=== PATIENT | male | born 1990 | race American Indian/Alaskan Native ===

== ENCOUNTER 2018-01-09 10:48 | Inpatient (IN) | payer OTHER ==
[2018-01-09 13:56] VITALS: BMI 24.3
--- NOTE | 2018-01-09 20:21 | HP ---
COWS - Scale Resting Pulse: 0= NH 80 or Below Sweatin= Chills/Flushing Restless Observation: 1= Difficult to Sit Still Pupil Size: 1= Pupils >than Normal Bone or Joint Aches: 1= Mild Discomfort Runny Nose/ Eye Tearin= Runny Nose/Eyes GI Upset > 30mins: 2= Nausea/Diarrhea Tremor Observation: 2= Slight Tremor Visible Yawning Observation: 1= 1-2x During Session Anxiety or Irritability: 1=Feels Anxious/Irritable Goose Flesh Skin: 0=Smooth Skin COWS Score: 12 Admission [facility] Chief Complaint: heroin and xanax withdrawal symptoms Allergies/Adverse Reactions: Allergies Allergy/AdvReac Type Severity Reaction Status Date / Time No Known Allergies Allergy Verified 01/09/18 17:20 History of Present Illness: 27 yo male with hx of nicotine, xanax and heroin (paransal) dependence is here seeking detox. PMHX: insomnia, anxiety. Denies suicidal / homicidal ideation or suicide attempts. Last detox a month ago at [facility]. Longest period of sobriety 6.5 months while on Suboxone. Denies hx of seizures, reports blackouts related to benzo withdrawal. Reference #: [id number] Others' Prescriptions Patient Name: Ji Vega Date: 1990 Address: [address] [place] [address] Sex: Male Rx Written Rx Dispensed Drug Quantity Days Supply Prescriber Name 12/22/2017 12/22/2017 methadone hcl 10 mg tablet 12 12 Pean, Khurram Kunz Patient Name: Ji Vega Date: 1990 Address: [address] [place] [address] Sex: Male Rx Written Rx Dispensed Drug Quantity Days Supply Prescriber Name 03/10/2017 03/10/2017 suboxone 8 mg-2 mg sl film 20 20 Marcial Vasquez MD Exam Limitations: No Limitations - Ebola screening Have you traveled outside of the country in the last 21 days: No (N) Have you had contact with anyone from an Ebola affected area: No Have you been sick,other than usual withdrawal symptoms: No Do you have a fever: No - Review of Systems Constitutional: Chills, Diaphoresis, Changes in sleep EENT: reports: No Symptoms Reported Respiratory: reports: No Symptoms reported Cardiac: reports: No Symptoms Reported GI: reports: Diarrhea, Nausea, Poor Fluid Intake : reports: No Symptoms Reported Musculoskeletal: reports: Back Pain, Joint Pain Integumentary: reports: No Symptoms Reported Neuro: reports: See HPI, Headache Endocrine: reports: No Symptoms Reported, Increased Thirst Hematology: reports: No Symptoms Reported Psychiatric: reports: Orientated x3, Anxious Other Systems: Reviewed and Negative Patient History - Patient Medical History Hx Anemia: No Hx Asthma: No Hx Chronic Obstructive Pulmonary Disease (COPD): No Hx Cancer: No Hx Cardiac Disorders: No Hx Congestive Heart Failure: No Hx Hypertension: No Hx Hypercholesterolemia: No Hx Pacemaker: No HX Cerebrovascular Accident: No Hx Seizures: No Hx Dementia: No Hx Diabetes: No Hx Gastrointestinal Disorders: No Hx Liver Disease: No Hx Genitourinary Disorders: No Hx Sexually Transmitted Disorders: No Hx Renal Disease (ESRD): No Hx Thyroid Disease: No Hx Human Immunodeficiency Virus (HIV): No (last tested 12/23/17 negative) Hx Hepatitis C: No Hx Depression: Yes Hx Suicide Attempt: No Hx Bipolar Disorder: No Hx Schizophrenia: No - Patient Surgical History Past Surgical History: No - PPD History Previous Implant?: Yes Documented Results: Negative w/o proof Implanted On Prior [facility] Admission?: No PPD to be Administered?: Yes - Smoking Cessation Smoking history: Current every day smoker Have you smoked in the past 12 months: Yes Aproximately how many cigarettes per day: 8 Hx Chewing Tobacco Use: No Initiated information on smoking cessation: Yes 'Breaking Loose' booklet given: 01/09/18 - Substance & Tx. History Hx Alcohol Use: Yes Hx Substance Use: Yes Substance Use Type: Cocaine, Tranquilizers Hx Substance Use Treatment: Yes (ast detox a month ago at [facility]) - Substances Abused Heroin Route: Inhalation Frequency: Daily Amount used: 15 bags Age of first use: 24 Date of Last Use: 01/08/18 Alprazolam (Xanax) Route: Oral Frequency: Daily Amount used: 8-10 mg Age of first use: 23 Date of Last Use: 01/06/18 Family Disease History - Family Disease History Family History: Unable to Obtain Admission Physical Exam BHS - Vital Signs Vital Signs: Vital Signs - 24 hr 01/09/18 13:54 Temperature 98.5 F Pulse Rate 64 Respiratory 18 Rate Blood Pressure 137/73 - Physical General Appearance: Yes: Appropriately Dressed, Thin, Tremorous, Anxious HEENTM: Yes: EOMI, Hearing grossly Normal, Normal ENT Inspection, Normocephalic , Normal Voice, YASMIN, Pharynx Normal, Tm's normal Respiratory: Yes: Chest Non-Tender, Lungs Clear, Normal Breath Sounds, No Respiratory Distress, No Accessory Muscle Use Neck: Yes: No masses,lesions,Nodules, Trachea in good position Breast: Yes: Breast Exam Deferred Cardiology: Yes: Regular Rhythm, Regular Rate, Murmur Abdominal: Yes: Normal Bowel Sounds, Non Tender, Flat, Soft Genitourinary: Yes: Within Normal Limits Back: Yes: Normal Inspection Musculoskeletal: Yes: full range of Motion, Gait Steady, Pelvis Stable Extremities: Yes: Normal Capillary Refill, Normal Inspection, Normal Range of Motion 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, Fully Oriented, Alert, Motor Strength 5/5, Depressed Affect Integumentary: Yes: Normal Color, Warm, Moist Lymphatic: Yes: Within Normal Limits - Diagnostic (1) Opioid dependence with withdrawal Current Visit: Yes Status: Acute (2) Sedative, hypnotic or anxiolytic dependence with withdrawal, unspecified Current Visit: Yes Status: Acute (3) Nicotine dependence Current Visit: Yes Status: Acute Qualifiers: Nicotine product type: cigarettes (4) Anxiety Current Visit: Yes Status: Chronic Cleared for Admission [facility] - Detox or Rehab [facility] Level of Care: Medically Managed Detox Regimen/Protocol: Methadone [facility] Breath Alcohol Content Breath Alcohol Content: 0 Urine Drug Screen - Results Drug Screen Negative: No Urine Drug Screen Results: OPI-Opiates
[2018-01-09] MEDS ORDERED: MENTHOL/PHENOL 1 EACH UD MM PRN (20:26)
[2018-01-09] MEDS ORDERED: METHADONE HCL 10 MG TABLET (FOR DETOX USE ONLY) PO ONE ×2 (20:26→23:00)
[2018-01-09] MEDS ORDERED: LOPERAMIDE HCL 2 MG CAPSULE PO PRN (20:26)
[2018-01-09] MEDS ORDERED: P-EPHED 60MG/TRIPROLIDI 2.5MG TABLET PO PRN (20:26)
[2018-01-09] MEDS ORDERED: MAG HYDROX/AL HYDROX/SIMETH 30 ML UNIT-DOSE CUP PO PRN (20:26)
[2018-01-09] MEDS ORDERED: ACETAMINOPHEN 325 MG TABLET (FP) PO PRN (20:26)
[2018-01-09] MEDS ORDERED: MAGNESIUM HYDROX 2400MG/30ML ORAL SUSPENSION 30 ML CUP PO PRN (20:26)
[2018-01-09] MEDS ORDERED: MAGNESIUM CITRATE 300 ML BOTTLE PO PRN (20:26)
[2018-01-09] MEDS ORDERED: IBUPROFEN 400 MG TABLET (FP) PO PRN (20:26)
[2018-01-09] MEDS ORDERED: MELATONIN 5 MG TABLETS PO PRN (22:00)
[2018-01-09] MEDS: THIAMINE HCL 100 MG TABLET (FP) PO SCH (22:27)
[2018-01-09] MEDS: diazePAM 5 MG TABLET PO PRN (22:27)
[2018-01-09] MEDS: hydrOXYzine PAMOATE 50 MG CAPSULE (FP) PO PRN (22:29)
[2018-01-10 06:35] LABS: URINE APPEARANCE CLEAR; URINE BILIRUBIN NEGATIVE (<2.0 mg/dL); URINE BLOOD NEGATIVE (NEGATIVE); URINE COLOR YELLOW; URINE GLUCOSE (UA) NEGATIVE (NEGATIVE); URINE KETONE NEGATIVE (NEGATIVE); URINE LEUK ESTERASE NEGATIVE (NEGATIVE); URINE NITRITE NEGATIVE (NEGATIVE); URINE PROTEIN NEGATIVE (NEGATIVE)
[2018-01-10] MEDS: diazePAM 5 MG TABLET PO PRN ×4 (08:24→22:22)
[2018-01-10] MEDS: guaiFENesin/D-METHORPHAN HB 10 ML UNIT-DOSE CUPS PO PRN ×2 (08:25→20:23)
[2018-01-10] MEDS ORDERED: METHADONE HCL 10 MG TABLET (FOR DETOX USE ONLY) PO ONE (10:00)
[2018-01-10 10:23] LABS: HEMATOCRIT 37.9 % (35.4-49); HEMOGLOBIN 13.1 GM/dL (11.7-16.9); MCH 28.3 pg (25.7-33.7); MCHC 34.7 g/dl (32.0-35.9); MEAN CELL VOLUME 81.6 fl (80-96); MEAN PLT VOLUME 10.1 fl (7.5-11.1); PLATELET COUNT 199 K/MM3 (134-434); RBC 4.64 M/mm3 (4.00-5.60); WHITE BLOOD COUNT 6.6 K/mm3 (4.0-10.0)
[2018-01-10 10:32] LABS: CHLORIDE 107 mmol/L (98-107); POTASSIUM 4.9 mmol/L (3.5-5.1); SODIUM 141 mmol/L (136-145)
[2018-01-10] MEDS: PRENATAL VITAMINS W/ FOLIC ACID TABLET (FP) PO SCH (10:39)
[2018-01-10] MEDS: hydrOXYzine PAMOATE 50 MG CAPSULE (FP) PO PRN ×3 (10:40→22:22)
[2018-01-10] MEDS: NICOTINE POLACRILEX 2 MG GUM BC PRN ×2 (10:41→12:53)
[2018-01-10 10:54] LABS: ALBUMIN 3.6 g/dl (3.4-5.0); ALK PHOS 40 U/L (45-117); ANION GAP 7 (8-16); BILIRUBIN,TOTAL 0.5 mg/dL (0.2-1.0); BLOOD UREA NITROGEN 19 mg/dL (7-18); CALCIUM 9.1 mg/dL (8.5-10.1); CO2 27 mmol/L (21-32); CREATININE 0.8 mg/dL (0.7-1.3); GLUCOSE,RANDOM 88 mg/dL (74-106); SGOT/AST 14 U/L (15-37); SGPT/ALT 31 U/L (12-78); TOT PROT 6.6 g/dl (6.4-8.2)
--- NOTE | 2018-01-10 11:09 | CONSULT ---
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 This is patient's first admission to detox at [facility]. Patient admitted to for heroin and cocaine dependence. Substance Abuse History: Smoking Cessation. Smoking history: Current every day smoker. Have you smoked in the past 12 months: Yes. Aproximately how many cigarettes per day: 8. Hx Chewing Tobacco Use: No. Initiated information on smoking cessation: Yes. 'Breaking Loose' booklet given: 01/09/18. - Substance & Tx. History. Hx Alcohol Use: Yes. Hx Substance Use: Yes. Substance Use Type : Cocaine, Tranquilizers. Hx Substance Use Treatment: Yes (ast detox a month ago at [facility]). - Substances Abused. Heroin. Route: Inhalation. Frequency: Daily. Amount used: 15 bags. Age of first use: 24. Date of Last Use: 01/08/18. Alprazolam (Xanax). Route: Oral. Frequency: Daily. Amount used: 8-10 mg. Age of first use: 23. Date of Last Use: 01/06/18 Medical History: Denies. Psychiatric History: Patient denies h/o psychiatric hospitalization, outpatient care, and suicide attempt. Pt. reports poor sleep. Physical/Sexual Abuse/Trauma History: Denies. Mental Status Exam - Mental Status Exam Alert and Oriented to: Time, Place, Person Cognitive Function: Good Patient Appearance: Well Groomed Mood: Hopeful Affect: Mood Congruent Patient Behavior: Appropriate, Cooperative Speech Pattern: Clear, Appropriate Voice Loudness: Normal Thought Process: Intact, Goal Oriented Thought Disorder: Not Present Hallucinations: Denies Suicidal Ideation: Denies Homicidal Ideation: Denies Insight/Judgement: Poor Sleep: Fair Appetite: Good Muscle strength/Tone: Normal Gait/Station: Normal Psychiatric Findings - Problem List ([place] 1, 2,3) (1) Nicotine dependence Current Visit: Yes Status: Acute Qualifiers: Nicotine product type: cigarettes (2) Opioid dependence with withdrawal Current Visit: Yes Status: Acute (3) Sedative, hypnotic or anxiolytic dependence with withdrawal, unspecified Current Visit: Yes Status: Acute (4) Substance-induced sleep disorder Current Visit: Yes Status: Acute - Initial Treatment Plan Initial Treatment Plan: Psychoeduation provided. Detoxification in progress. Ambien 10mg qhs ordered. Benefits and side effects discussed. Patient made aware of the risk of parasomnia. Verbal consent given. Will continue to monitor.
--- NOTE | 2018-01-10 11:43 | EKG ---
Test Reason : Blood Pressure : / mmHG Vent. Rate : 073 BPM Atrial Rate : 073 BPM P-R Int : 192 ms QRS Dur : 084 ms QT Int : 382 ms P-R-T Axes : 051 047 047 degrees QTc Int : 420 ms NORMAL SINUS RHYTHM NORMAL ECG WHEN COMPARED WITH ECG OF 07-JAN-2017 15:22, VENT. RATE HAS DECREASED BY 41 BPM QRS DURATION HAS DECREASED T WAVE INVERSION NO LONGER EVIDENT IN INFERIOR LEADS NONSPECIFIC T WAVE ABNORMALITY NO LONGER EVIDENT IN LATERAL LEADS Confirmed by ZIYAD NORWOOD MD ([id number]) on 01/10/2018 11:42:47 AM Referred By: Confirmed By:ZIYAD NORWOOD MD
--- NOTE | 2018-01-10 15:10 | PN ---
S COWS - Scale Resting Pulse: 1= [place] 81-100 Sweatin= Chills/Flushing Restless Observation: 3= Extraneous Movement Pupil Size: 2= Moderately Dilated Bone or Joint Aches: 2= Severe Diffuse Aches Runny Nose/ Eye Tearin= Nasal Congestion GI Upset > 30mins: 0= None Tremor Observation of Outstretched Hands: 1= Tremor [place], Not Seen Yawning Observation: 1= 1-2x During Session Anxiety or Irritability: 1=Feels Anxious/Irritable Goose Flesh Skin: 3=Piloerection COWS Score: 16 BHS Progress Note (SOAP) Subjective: 'ANXIETY,TREMORS,HEADACHE,NASAL CONGESTION,GOOSE BUMPS". Objective: 01/10/18 15:09 Vital Signs Temperature 97.4 F L 01/10/18 14:46 Pulse Rate 81 01/10/18 14:46 Respiratory Rate 18 01/10/18 14:46 Blood Pressure 128/83 01/10/18 14:46 O2 Sat by Pulse Oximetry (%) Laboratory Tests 01/09/18 01/10/18 01/10/18 22:00 08:00 08:00 WBC 6.6 RBC 4.64 Hgb 13.1 Hct 37.9 MCV 81.6 MCH 28.3 MCHC 34.7 RDW 14.0 Plt Count 199 MPV 10.1 Sodium 141 Potassium 4.9 D Chloride 107 Carbon Dioxide 27 Anion Gap 7 L BUN 19 H Creatinine 0.8 Creat Clearance w eGFR > 60 Random Glucose 88 Calcium 9.1 Total Bilirubin 0.5 AST 14 L D ALT 31 D Alkaline Phosphatase 40 L D Total Protein 6.6 Albumin 3.6 D Urine Color Yellow Urine Appearance Clear Urine pH 7.0 D Ur Specific [place] 1.016 Urine Protein Negative Urine Glucose (UA) Negative Urine Ketones Negative Urine Blood Negative Urine Nitrite Negative Urine Bilirubin Negative Urine Urobilinogen 2.0 Ur Leukocyte Esterase Negative Assessment: 01/10/18 15:09 WITHDRAWAL SX Plan: CONTINUE DETOX
[2018-01-10] MEDS: ZOLPIDEM TARTRATE 10 MG TABLET (PARK CARE ONLY) PO PRN (22:23)
[2018-01-10] MEDS: THIAMINE HCL 100 MG TABLET (FP) PO SCH (22:23)
[2018-01-11] MEDS: hydrOXYzine PAMOATE 50 MG CAPSULE (FP) PO PRN ×4 (04:13→22:32)
[2018-01-11] MEDS: diazePAM 5 MG TABLET PO PRN ×5 (04:13→22:32)
[2018-01-11] MEDS: guaiFENesin/D-METHORPHAN HB 10 ML UNIT-DOSE CUPS PO PRN (04:14)
[2018-01-11] MEDS: NICOTINE POLACRILEX 2 MG GUM BC PRN ×4 (04:16→22:34)
[2018-01-11] MEDS ORDERED: METHADONE HCL 5 MG TABLET (FOR DETOX USE ONLY) PO ONE (10:00)
[2018-01-11] MEDS ORDERED: cloNIDine HCL 0.1 MG TABLET PO PRN (10:27)
[2018-01-11] MEDS: PRENATAL VITAMINS W/ FOLIC ACID TABLET (FP) PO SCH (10:30)
--- NOTE | 2018-01-11 12:36 | PN ---
BHS COWS - Scale Resting Pulse: 0= NH 80 or Below Sweatin= Chills/Flushing Restless Observation: 3= Extraneous Movement Pupil Size: 2= Moderately Dilated Bone or Joint Aches: 4=Acute Joint/Muscle Pain Runny Nose/ Eye Tearin= Nasal Congestion GI Upset > 30mins: 2= Nausea/Diarrhea (NAUSEA) Tremor Observation of Outstretched Hands: 1= Tremor [place], Not Seen Yawning Observation: 1= 1-2x During Session Anxiety or Irritability: 2=Irritable/Anxious Goose Flesh Skin: 0=Smooth Skin COWS Score: 17 S Progress Note (SOAP) Subjective: ANXIETY,IRRITABILITY,TREMORS,MUSCLE ACHES,PREOCCUPATION WITH MORE VALIUM. Objective: 01/11/18 12:36 Vital Signs 01/11/18 01/11/18 06:36 10:07 Temperature 97.2 F L 97.3 F L Pulse Rate 74 64 Respiratory 18 18 Rate Blood Pressure 108/73 117/60 Laboratory Tests 01/09/18 01/10/18 01/10/18 22:00 08:00 08:00 WBC 6.6 RBC 4.64 Hgb 13.1 Hct 37.9 MCV 81.6 MCH 28.3 MCHC 34.7 RDW 14.0 Plt Count 199 MPV 10.1 Sodium 141 Potassium 4.9 D Chloride 107 Carbon Dioxide 27 Anion Gap 7 L BUN 19 H Creatinine 0.8 Creat Clearance w eGFR > 60 Random Glucose 88 Calcium 9.1 Total Bilirubin 0.5 AST 14 L D ALT 31 D Alkaline Phosphatase 40 L D Total Protein 6.6 Albumin 3.6 D Urine Color Yellow Urine Appearance Clear Urine pH 7.0 D Ur Specific [place] 1.016 Urine Protein Negative Urine Glucose (UA) Negative Urine Ketones Negative Urine Blood Negative Urine Nitrite Negative Urine Bilirubin Negative Urine Urobilinogen 2.0 Ur Leukocyte Esterase Negative RPR Titer 01/10/18 08:00 WBC RBC Hgb Hct MCV MCH MCHC RDW Plt Count MPV Sodium Potassium Chloride Carbon Dioxide Anion Gap BUN Creatinine Creat Clearance w eGFR Random Glucose Calcium Total Bilirubin AST ALT Alkaline Phosphatase Total Protein Albumin Urine Color Urine Appearance Urine pH Ur Specific [place] Urine Protein Urine Glucose (UA) Urine Ketones Urine Blood Urine Nitrite Urine Bilirubin Urine Urobilinogen Ur Leukocyte Esterase RPR Titer Nonreactive Assessment: 01/11/18 12:36 WITHDRAWAL SX Plan: CONTINUE DETOX MEDICATION MANAGEMENT EXPLAINED TO PATIENT DAILY. INCREASE PO FLUIDS LAB RESULTS REVIEWED WITH PT
[2018-01-11] MEDS: THIAMINE HCL 100 MG TABLET (FP) PO SCH (22:31)
[2018-01-11] MEDS: ZOLPIDEM TARTRATE 10 MG TABLET (PARK CARE ONLY) PO PRN (22:32)
[2018-01-12] MEDS: diazePAM 5 MG TABLET PO PRN ×4 (03:11→20:24)
[2018-01-12] MEDS: hydrOXYzine PAMOATE 50 MG CAPSULE (FP) PO PRN ×3 (03:11→22:12)
[2018-01-12] MEDS: NICOTINE POLACRILEX 2 MG GUM BC PRN ×7 (03:11→23:21)
[2018-01-12] MEDS: PRENATAL VITAMINS W/ FOLIC ACID TABLET (FP) PO SCH (09:06)
[2018-01-12] MEDS ORDERED: METHADONE HCL 5 MG TABLET (FOR DETOX USE ONLY) PO ONE (10:00)
[2018-01-12] MEDS ORDERED: DOCUSATE SODIUM 100 MG CAPSULE (FP) PO PRN (11:14)
[2018-01-12] MEDS ORDERED: cloNIDine HCL 0.1 MG TABLET PO ONE (15:08)
--- NOTE | 2018-01-12 17:26 | PN ---
BHS Progress Note (SOAP) Subjective: Tremors, Anxious, H/A, Body Aches, Nausea, Stomach Cramping. Objective: PATIENT A & O X 3, OBSERVED AMBULATING ON UNIT. NO ACUTE DISTRESS. 01/12/18 17:25 Vital Signs Temperature 97.2 F L 01/12/18 14:22 Pulse Rate 95 H 01/12/18 14:22 Respiratory Rate 20 01/12/18 14:22 Blood Pressure 123/82 01/12/18 14:22 O2 Sat by Pulse Oximetry (%) Laboratory Tests 01/09/18 01/10/18 01/10/18 22:00 08:00 08:00 WBC 6.6 RBC 4.64 Hgb 13.1 Hct 37.9 MCV 81.6 MCH 28.3 MCHC 34.7 RDW 14.0 Plt Count 199 MPV 10.1 Sodium 141 Potassium 4.9 D Chloride 107 Carbon Dioxide 27 Anion Gap 7 L BUN 19 H Creatinine 0.8 Creat Clearance w eGFR > 60 Random Glucose 88 Calcium 9.1 Total Bilirubin 0.5 AST 14 L D ALT 31 D Alkaline Phosphatase 40 L D Total Protein 6.6 Albumin 3.6 D Urine Color Yellow Urine Appearance Clear Urine pH 7.0 D Ur Specific [place] 1.016 Urine Protein Negative Urine Glucose (UA) Negative Urine Ketones Negative Urine Blood Negative Urine Nitrite Negative Urine Bilirubin Negative Urine Urobilinogen 2.0 Ur Leukocyte Esterase Negative RPR Titer 01/10/18 08:00 WBC RBC Hgb Hct MCV MCH MCHC RDW Plt Count MPV Sodium Potassium Chloride Carbon Dioxide Anion Gap BUN Creatinine Creat Clearance w eGFR Random Glucose Calcium Total Bilirubin AST ALT Alkaline Phosphatase Total Protein Albumin Urine Color Urine Appearance Urine pH Ur Specific [place] Urine Protein Urine Glucose (UA) Urine Ketones Urine Blood Urine Nitrite Urine Bilirubin Urine Urobilinogen Ur Leukocyte Esterase RPR Titer Nonreactive LABS NOTED. Assessment: 01/12/18 17:25 WITHDRAWAL SYMPTOMS. Plan: CONTINUE DETOX.
[2018-01-12] MEDS: ZOLPIDEM TARTRATE 10 MG TABLET (PARK CARE ONLY) PO PRN (22:11)
[2018-01-12] MEDS: THIAMINE HCL 100 MG TABLET (FP) PO SCH (22:12)
[2018-01-13] MEDS ORDERED: METHADONE HCL 10 MG TABLET (FOR DETOX USE ONLY) PO ONE (10:00)
[2018-01-13 10:10] VITALS: BP 112/71; PULSE 87; TEMP 96.7
[2018-01-13] MEDS: PRENATAL VITAMINS W/ FOLIC ACID TABLET (FP) PO SCH (10:14)
[2018-01-13] MEDS: NICOTINE POLACRILEX 2 MG GUM BC PRN (10:14)
[2018-01-13] MEDS: hydrOXYzine PAMOATE 50 MG CAPSULE (FP) PO PRN (10:14)
--- NOTE | 2018-01-13 15:04 | PN ---
BHS Progress Note (SOAP) Subjective: PT DECLINED TO COMPLETE DETOX STATING HE HAS FAMILY ISSUES HE NEEDS TO TAKE CARE OF. ALERT O X 3. 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 PT IS REFERRED TO [facility] TO FOLLOW UP FOR AFTERCARE. Objective: 01/13/18 15:03 Vital Signs 01/13/18 10:10 Temperature 96.7 F L Pulse Rate 87 Respiratory 18 Rate Blood Pressure 112/71 Laboratory Tests 01/09/18 01/10/18 01/10/18 22:00 08:00 08:00 WBC 6.6 RBC 4.64 Hgb 13.1 Hct 37.9 MCV 81.6 MCH 28.3 MCHC 34.7 RDW 14.0 Plt Count 199 MPV 10.1 Sodium 141 Potassium 4.9 D Chloride 107 Carbon Dioxide 27 Anion Gap 7 L BUN 19 H Creatinine 0.8 Creat Clearance w eGFR > 60 Random Glucose 88 Calcium 9.1 Total Bilirubin 0.5 AST 14 L D ALT 31 D Alkaline Phosphatase 40 L D Total Protein 6.6 Albumin 3.6 D Urine Color Yellow Urine Appearance Clear Urine pH 7.0 D Ur Specific [place] 1.016 Urine Protein Negative Urine Glucose (UA) Negative Urine Ketones Negative Urine Blood Negative Urine Nitrite Negative Urine Bilirubin Negative Urine Urobilinogen 2.0 Ur Leukocyte Esterase Negative RPR Titer 01/10/18 08:00 WBC RBC Hgb Hct MCV MCH MCHC RDW Plt Count MPV Sodium Potassium Chloride Carbon Dioxide Anion Gap BUN Creatinine Creat Clearance w eGFR Random Glucose Calcium Total Bilirubin AST ALT Alkaline Phosphatase Total Protein Albumin Urine Color Urine Appearance Urine pH Ur Specific [place] Urine Protein Urine Glucose (UA) Urine Ketones Urine Blood Urine Nitrite Urine Bilirubin Urine Urobilinogen Ur Leukocyte Esterase RPR Titer Nonreactive Assessment: 01/13/18 15:03 NAD Plan: PT SIGNED OUT AMA
--- NOTE | 2018-01-13 15:08 | DS ---
[facility] Detox Discharge Summary Admission Date: 01/09/18 Discharge Date: 01/13/18 - History Present History: Opioid Dependence, Sedative Dependence Additional Comments: PT DECLINED TO COMPLETE DETOX. ALERT O X 3. NAD. PT REPORTS HIS PMD IS [facility] ON [place], [place]. Pertinent Past History: PLEASE SEE DX BELOW - Physical Exam Results Vital Signs: Vital Signs Temperature 96.7 F L 01/13/18 10:10 Pulse Rate 87 01/13/18 10:10 Respiratory Rate 18 01/13/18 10:10 Blood Pressure 112/71 01/13/18 10:10 O2 Sat by Pulse Oximetry (%) Pertinent Admission Physical Exam Findings: WITHDRAWAL SX Laboratory Tests 01/09/18 01/10/18 01/10/18 22:00 08:00 08:00 WBC 6.6 RBC 4.64 Hgb 13.1 Hct 37.9 MCV 81.6 MCH 28.3 MCHC 34.7 RDW 14.0 Plt Count 199 MPV 10.1 Sodium 141 Potassium 4.9 D Chloride 107 Carbon Dioxide 27 Anion Gap 7 L BUN 19 H Creatinine 0.8 Creat Clearance w eGFR > 60 Random Glucose 88 Calcium 9.1 Total Bilirubin 0.5 AST 14 L D ALT 31 D Alkaline Phosphatase 40 L D Total Protein 6.6 Albumin 3.6 D Urine Color Yellow Urine Appearance Clear Urine pH 7.0 D Ur Specific [place] 1.016 Urine Protein Negative Urine Glucose (UA) Negative Urine Ketones Negative Urine Blood Negative Urine Nitrite Negative Urine Bilirubin Negative Urine Urobilinogen 2.0 Ur Leukocyte Esterase Negative RPR Titer 01/10/18 08:00 WBC RBC Hgb Hct MCV MCH MCHC RDW Plt Count MPV Sodium Potassium Chloride Carbon Dioxide Anion Gap BUN Creatinine Creat Clearance w eGFR Random Glucose Calcium Total Bilirubin AST ALT Alkaline Phosphatase Total Protein Albumin Urine Color Urine Appearance Urine pH Ur Specific [place] Urine Protein Urine Glucose (UA) Urine Ketones Urine Blood Urine Nitrite Urine Bilirubin Urine Urobilinogen Ur Leukocyte Esterase RPR Titer Nonreactive - Treatment Hospital Course: Discharged Condition Good - Medication Discharge Medications: Ambulatory Orders NK [No Known Home Medication] 01/09/18 - Diagnosis (1) Nicotine dependence Status: Acute Qualifiers: Nicotine product type: cigarettes Substance use status: in withdrawal Qualified Code(s): F17.213 - Nicotine dependence, cigarettes, with withdrawal (2) Opioid dependence with withdrawal Status: Acute (3) Sedative, hypnotic or anxiolytic dependence with withdrawal, unspecified Status: Acute - AMA Did Patient Leave Against Medical Advice: Yes (PT SIGNED OUT AMA)
[2018-01-14] MEDS ORDERED: METHADONE HCL 5 MG TABLET (FOR DETOX USE ONLY) PO ONE (06:00)
== END 2018-01-13 11:08 | disposition left against medical advice (07) | DRG 770 ==
LOC: YASAS 10:48 → Y3N 16:28
PROVIDERS: ADMIT Surgery; ATTEND Surgery
PROC: HZ2ZZZZ Detoxification Services for Substance Abuse Treatment (ICD-10-PCS; principal; 2018-01-09)
DX: F11.23 Opioid dependence with withdrawal (principal); F13.230 Sedative, hypnotic or anxiolytic dependence with withdrawal, uncomplicated; F17.210 Nicotine dependence, cigarettes, uncomplicated; F41.9 Anxiety disorder, unspecified; F19.282 Other psychoactive substance dependence with psychoactive substance-induced sleep disorder; R01.1 Cardiac murmur, unspecified
CPT/HCPCS: 36415; 80053; 81003; 85027; 86593; 93005; 93010; J0735

== ENCOUNTER 2018-07-09 13:31 | Inpatient (IN) | payer OTHER ==
[2018-07-09 14:24] VITALS: BMI 23.6
--- NOTE | 2018-07-09 16:59 | HP ---
COWS - Scale Resting Pulse: 1= [place] 81-100 Sweatin=Flushed/Facial Moisture Restless Observation: 1= Difficult to Sit Still Pupil Size: 1= Pupils >than Normal Bone or Joint Aches: 1= Mild Discomfort Runny Nose/ Eye Tearin= Nasal Congestion GI Upset > 30mins: 2= Nausea/Diarrhea Tremor Observation: 1= Tremor [place], Not Seen Yawning Observation: 1= 1-2x During Session Anxiety or Irritability: 4=Extreme Anxiety Goose Flesh Skin: 0=Smooth Skin COWS Score: 15 CIWA Score - Admission Criteria OAS Guidelines: Admission for Medically Managed Detox: Requires at least one of the followin. CIWA greater than 12 2. Seizures within the past 24 hours 3. Delirium tremens within the past 24 hours 4. Hallucinations within the past 24 hours 5. Acute intervention needed for co occurring medical disorder 6. Acute intervention needed for co occurring psychiatric disorder 7. Severe withdrawal that cannot be handled at a lower level of care (continued vomiting, continued diarrhea, abnormal vital signs) requiring intravenous medication and/or fluids 8. Admission [facility] Chief Complaint: "detox from heroin and xanax" Allergies/Adverse Reactions: Allergies Allergy/AdvReac Type Severity Reaction Status Date / Time No Known Allergies Allergy Verified 07/09/18 15:52 History of Present Illness: 28 yo with no medical problems and on meds requesting detox. Last here 01/2018 for the same. Heroin 15-20 bags/day Alprazolam: 6mg/day started using oxycodone-"euphoric" at age 21, and at age 23 started inhaling heroin. DUR/ISTOP- no meds Utox- opioids and THC, no benzo - Ebola screening Have you traveled outside of the country in the last 21 days: No Have you had contact with anyone from an Ebola affected area: No Have you been sick,other than usual withdrawal symptoms: No Do you have a fever: No Patient History - Patient Medical History Hx Anemia: No Hx Asthma: No Hx Chronic Obstructive Pulmonary Disease (COPD): No Hx Cancer: No Hx Cardiac Disorders: No Hx Congestive Heart Failure: No Hx Hypertension: No Hx Hypercholesterolemia: No Hx Pacemaker: No HX Cerebrovascular Accident: No Hx Seizures: No Hx Dementia: No Hx Diabetes: No Hx Gastrointestinal Disorders: No Hx Liver Disease: No Hx Genitourinary Disorders: No Hx Sexually Transmitted Disorders: No Hx Renal Disease (ESRD): No Hx Thyroid Disease: No Hx Human Immunodeficiency Virus (HIV): No (last tested 12/23/17 negative) Hx Hepatitis C: No Hx Depression: No Hx Suicide Attempt: No Hx Bipolar Disorder: No Hx Schizophrenia: No - Patient Surgical History Past Surgical History: No Hx Neurologic Surgery: No Hx Cataract Extraction: No Hx Cardiac Surgery: No Hx Lung Surgery: No Hx Breast Surgery: No Hx Breast Biopsy: No Hx Abdominal Surgery: No Hx Appendectomy: No Hx Cholecystectomy: No Hx Genitourinary Surgery: No Hx Section: No Hx Orthopedic Surgery: No Anesthesia Reaction: No - PPD History Previous Implant?: Yes Documented Results: Negative w/proof Date: 01/11/18 - Smoking Cessation Smoking history: Former smoker Have you smoked in the past 12 months: Yes Aproximately how many cigarettes per day: 10 If you are a former smoker, when did you quit?: 02/2018 Hx Chewing Tobacco Use: No Initiated information on smoking cessation: Yes 'Breaking Loose' booklet given: 07/09/18 - Substances Abused Heroin Route: Inhalation Frequency: Daily Amount used: 15-20 bags Age of first use: 20 Date of Last Use: 07/08/18 Xanax Route: Oral Frequency: Daily Amount used: 6 mg. Age of first use: 23 Date of Last Use: 07/07/18 Family Disease History - Family Disease History Family Disease History: Diabetes: Father (living in [place]), Heart Disease: Father, Other: Father, Mother (living in [place]), Brother (younger, in [place], Aspergers) Admission Physical Exam S - Vital Signs Vital Signs: Vital Signs - 24 hr 07/09/18 14:19 Temperature 98 F Pulse Rate 72 Respiratory 18 Rate Blood Pressure 136/56 L - Physical General Appearance: Yes: Within Normal Limits HEENTM: Yes: Within Normal Limits Respiratory: Yes: Within Normal Limits Neck: Yes: Within Normal Limits Cardiology: Yes: Within Normal Limits Abdominal: Yes: Within Normal Limits Genitourinary: Yes: Within Normal Limits Back: Yes: Within Normal Limits Musculoskeletal: Yes: Within Normal Limits Extremities: Yes: Within Normal Limits Neurological: Yes: Within Normal Limits Integumentary: Yes: Within Normal Limits Lymphatic: Yes: Within Normal Limits - Diagnostic (1) Nicotine dependence Current Visit: No Status: Acute Qualifiers: Nicotine product type: cigarettes Substance use status: in withdrawal Qualified Code(s): F17.213 - Nicotine dependence, cigarettes, with withdrawal (2) Opioid dependence with withdrawal Current Visit: No Status: Acute Comment: risks and limitations of suboxone discussed - suboxone agreement reviewed and signed start suboxone 4mg -discussed allowing to completely dissolve under tongue safekeeping of medication reviewed emphasized attending [employer] Focus groups (3) Sedative, hypnotic or anxiolytic dependence with withdrawal, unspecified Current Visit: No Status: Acute BHS Breath Alcohol Content Breath Alcohol Content: 0 Urine Drug Screen - Results Urine Drug Screen Results: OPI-Opiates, OXY-Oxycodone, FEN-Fentanyl
[2018-07-09] MEDS ORDERED: MAGNESIUM HYDROX 2400MG/30ML ORAL SUSPENSION 30 ML CUP PO PRN (17:22)
[2018-07-09] MEDS ORDERED: MAGNESIUM CITRATE 300 ML BOTTLE PO PRN (17:22)
[2018-07-09] MEDS ORDERED: MENTHOL/PHENOL 1 EACH UD MM PRN (17:22)
[2018-07-09] MEDS ORDERED: ACETAMINOPHEN 325 MG TABLET (FP) PO PRN (17:22)
[2018-07-09] MEDS ORDERED: MAG HYDROX/AL HYDROX/SIMETH 30 ML UNIT-DOSE CUP PO PRN (17:22)
[2018-07-09] MEDS ORDERED: P-EPHED 60MG/TRIPROLIDI 2.5MG TABLET PO PRN (17:22)
[2018-07-09] MEDS ORDERED: LOPERAMIDE HCL 2 MG CAPSULE PO PRN (17:22)
[2018-07-09] MEDS ORDERED: guaiFENesin/D-METHORPHAN HB 10 ML UNIT-DOSE CUPS PO PRN (17:22)
[2018-07-09] MEDS ORDERED: IBUPROFEN 400 MG TABLET (FP) PO PRN (17:22)
[2018-07-09] MEDS ORDERED: hydrOXYzine PAMOATE 50 MG CAPSULE (FP) PO PRN (17:25)
[2018-07-09] MEDS ORDERED: cloNIDine HCL 0.1 MG TABLET PO PRN (17:32)
[2018-07-09] MEDS ORDERED: METHADONE HCL 10 MG TABLET (FOR DETOX USE ONLY) PO ONE ×2 (18:30→23:00)
[2018-07-09] MEDS: diazePAM 5 MG TABLET PO PRN ×2 (19:20→23:25)
[2018-07-09] MEDS: NICOTINE POLACRILEX 2 MG GUM BC PRN ×2 (20:14→22:35)
[2018-07-09] MEDS ORDERED: MELATONIN 5 MG TABLETS PO PRN (22:00)
[2018-07-09] MEDS: THIAMINE HCL 100 MG TABLET (FP) PO SCH (22:06)
[2018-07-10 01:29] LABS: URINE APPEARANCE CLEAR; URINE BILIRUBIN NEGATIVE (<2.0 mg/dL); URINE COLOR YELLOW; URINE GLUCOSE (UA) NEGATIVE (NEGATIVE); URINE KETONE NEGATIVE (NEGATIVE); URINE LEUK ESTERASE NEGATIVE (NEGATIVE); URINE NITRITE NEGATIVE (NEGATIVE); URINE PROTEIN NEGATIVE (NEGATIVE); URINE UROBILINOGEN NEGATIVE mg/dL (0.2-1.0)
[2018-07-10] MEDS: diazePAM 5 MG TABLET PO PRN ×4 (08:29→21:21)
[2018-07-10] MEDS ORDERED: METHADONE HCL 10 MG TABLET (FOR DETOX USE ONLY) PO ONE (10:00)
[2018-07-10] MEDS: PRENATAL VITAMINS W/ FOLIC ACID TABLET (FP) PO SCH (10:33)
[2018-07-10] MEDS: NICOTINE POLACRILEX 2 MG GUM BC PRN ×2 (10:43→12:42)
--- NOTE | 2018-07-10 13:34 | CONSULT ---
[facility] Psychiatric Consult - Data Date of interview: 07/10/18 Admission source: [facility] Identifying data: Readmission to [facility] for this 28 y/o [place]-born male seeking detoxification treatment on for opioid and xnax dependence. 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 Substance Abuse History: Confirmed by the patient in this interview. Details in [facility] report : Smoking history: Former smoker. Have you smoked in the past 12 months: Yes. Aproximately how many cigarettes per day: 10. If you are a former smoker, when did you quit?: 02/2018. Hx Chewing Tobacco Use: No. Initiated information on smoking cessation: Yes. 'Breaking Loose' booklet given : 07/09/18. - Substances Abused. Heroin. Route: Inhalation. Frequency: Daily. Amount used: 15-20 bags. Age of first use: 20. Date of Last Use: 07/08. Xanax. Route: Oral. Frequency: Daily. Amount used: 6 mg. Age of first use: 23. Date of Last Use: 07/07/18 Medical History: Patient endorses good general health. Psychiatric History: Patient denies history of psychiatric hospitalizations or suicide attempts. Physical/Sexual Abuse/Trauma History: No reported history of abuse. Additional Comment: Urine Drug Screen Results: OPI-Opiates, OXY-Oxycodone, FEN- Fentanyl. Noted. Mental Status Exam - Mental Status Exam Alert and Oriented to: Time, Place, Person Cognitive Function: Good Patient Appearance: Well Groomed Mood: Hopeful, Euthymic Affect: Appropriate, Normal Range Patient Behavior: Appropriate, Cooperative Speech Pattern: Clear, Appropriate Voice Loudness: Normal Thought Process: Intact, Goal Oriented Thought Disorder: Not Present Hallucinations: Denies Suicidal Ideation: Denies Homicidal Ideation: Denies Sleep: Poorly, Difficulty falling asleep Appetite: Good Muscle strength/Tone: Normal Gait/Station: Normal Psychiatric Findings - Problem List ([place] 1, 2,3) (1) Opioid dependence with withdrawal Current Visit: Yes Status: Acute (2) Sedative, hypnotic or anxiolytic dependence with withdrawal, unspecified Current Visit: Yes Status: Acute (3) Nicotine dependence Current Visit: Yes Status: Acute Qualifiers: Nicotine product type: cigarettes Substance use status: in withdrawal Qualified Code(s): F17.213 - Nicotine dependence, cigarettes, with withdrawal (4) Insomnia Current Visit: Yes Status: Acute - Initial Treatment Plan Initial Treatment Plan: Mr Vega is interviewed with medical students in attendance (verbally authorized by the patient). Psychoeducation. Sleep hygiene. Detoxification in progress. NA meetings. Relapse prevention measures are discussed with the patient (suboxone, GIRARD naltrexone, 12 step doctrine, psychotherapy). Patient agrees to a trial of " a low dose " of seroquel. Consents to take seroquel at the dose of 50 mg po hs. Side effects/benefits discussed with the patient. Made aware of the risk of metabolic syndrome, abnormal involuntary movements, cardiovascular adverse events, oversedation/ falls. Informed that this is an off-label utilization of the drug. Mr Vega insists on taking seroquel in this hospital course. Observation.
--- NOTE | 2018-07-10 15:27 | PN ---
[facility] COWS - Scale Resting Pulse: 1= [place] 81-100 Sweatin= Chills/Flushing Restless Observation: 3= Extraneous Movement Pupil Size: 1= Pupils >than Normal Bone or Joint Aches: 2= Severe Diffuse Aches Runny Nose/ Eye Tearin= Runny Nose/Eyes GI Upset > 30mins: 3= Vomiting/Diarrhea Tremor Observation of Outstretched Hands: 2= Slight Tremor Visible Yawning Observation: 1= 1-2x During Session Anxiety or Irritability: 2=Irritable/Anxious Goose Flesh Skin: 0=Smooth Skin COWS Score: 18 [facility] Progress Note (SOAP) Subjective: Chills, goose bumps, tremor, chills, interrupted sleep, anxious Objective: 07/10/18 15:22 Last Vital Signs Temp Pulse Resp BP Pulse Ox 99.0 F 78 18 119/80 07/10/18 13:51 07/10/18 13:51 07/10/18 13:51 07/10/18 13:51 Laboratory Tests 07/09/18 23:18 Urine Color Yellow Urine Appearance Clear Urine pH 5.0 D Ur Specific [place] 1.024 Urine Protein Negative Urine Glucose (UA) Negative Urine Ketones Negative Urine Blood Negative Urine Nitrite Negative Urine Bilirubin Negative Urine Urobilinogen Negative Ur Leukocyte Esterase Negative UA noted; admission labs reordered in AM Assessment: 07/10/18 15:28 Withdrawal symptoms Plan: Continue detox Encouraged PO water intake Follow up on admission labs
[2018-07-10] MEDS: THIAMINE HCL 100 MG TABLET (FP) PO SCH (21:21)
[2018-07-10] MEDS ORDERED: QUEtiapine FUMARATE 50 MG TABLET PO SCH (22:00)
[2018-07-11] MEDS: diazePAM 5 MG TABLET PO PRN ×4 (01:38→16:19)
[2018-07-11] MEDS ORDERED: METHADONE HCL 5 MG TABLET (FOR DETOX USE ONLY) PO ONE (10:00)
[2018-07-11 10:11] LABS: BASO % 0.7 % (0-2.0); EOS % 6.2 % (0-4.5); HEMATOCRIT 42.8 % (35.4-49); HEMOGLOBIN 15.2 GM/dL (11.7-16.9); LYMPH % 20.6 % (8-40); MCH 28.8 pg (25.7-33.7); MCHC 35.5 g/dl (32.0-35.9); MEAN CELL VOLUME 81.2 fl (80-96); MEAN PLT VOLUME 10.8 fl (7.5-11.1); MONO % 9.1 % (3.8-10.2); NEUT % 63.4 % (42.8-82.8); PLATELET COUNT 237 K/MM3 (134-434); RBC 5.27 M/mm3 (4.00-5.60); RDW 13.3 % (11.9-15.9); WHITE BLOOD COUNT 10.2 K/mm3 (4.0-10.0)
[2018-07-11] MEDS: PRENATAL VITAMINS W/ FOLIC ACID TABLET (FP) PO SCH (11:02)
[2018-07-11] MEDS: NICOTINE POLACRILEX 2 MG GUM BC PRN (11:04)
[2018-07-11 13:30] VITALS: BP 101/71; PULSE 81; TEMP 97.1
--- NOTE | 2018-07-11 14:52 | PN ---
[facility] COWS - Scale Resting Pulse: 1= [place] 81-100 Sweatin= Chills/Flushing Restless Observation: 3= Extraneous Movement Pupil Size: 0= Normal to Room Light Bone or Joint Aches: 2= Severe Diffuse Aches Runny Nose/ Eye Tearin= None GI Upset > 30mins: 2= Nausea/Diarrhea Tremor Observation of Outstretched Hands: 2= Slight Tremor Visible Yawning Observation: 1= 1-2x During Session Anxiety or Irritability: 2=Irritable/Anxious Goose Flesh Skin: 0=Smooth Skin COWS Score: 14 [facility] Progress Note (SOAP) Subjective: Sweating, chills, interrupted sleep. As per patient, his withdrawal symptoms are worse today. Objective: 07/11/18 14:50 Last Vital Signs Temp Pulse Resp BP Pulse Ox 97.1 F L 81 16 101/71 07/11/18 13:29 07/11/18 13:29 07/11/18 13:29 07/11/18 13:29 Laboratory Tests 07/09/18 07/11/18 07/11/18 23:18 07:00 07:00 WBC 10.2 H RBC 5.27 Hgb 15.2 Hct 42.8 MCV 81.2 MCH 28.8 MCHC 35.5 RDW 13.3 Plt Count 237 MPV 10.8 Absolute Neuts (auto) 6.5 Neutrophils % 63.4 Lymphocytes % 20.6 Monocytes % 9.1 Eosinophils % 6.2 H D Basophils % 0.7 Nucleated RBC % 0 Sodium 139 Potassium 4.2 Chloride 104 Carbon Dioxide 28 Anion Gap 7 L BUN 16 Creatinine 0.7 Creat Clearance w eGFR > 60 Random Glucose 90 Calcium 9.4 Total Bilirubin 0.4 AST 13 L ALT 34 Alkaline Phosphatase 61 Total Protein 7.9 Albumin 4.4 Urine Color Yellow Urine Appearance Clear Urine pH 5.0 D Ur Specific [place] 1.024 Urine Protein Negative Urine Glucose (UA) Negative Urine Ketones Negative Urine Blood Negative Urine Nitrite Negative Urine Bilirubin Negative Urine Urobilinogen Negative Ur Leukocyte Esterase Negative Labs reviewed Assessment: 07/11/18 14:51 Withdrawal symptoms Plan: Continue detox Encouraged PO water intake
--- NOTE | 2018-07-11 17:52 | DS ---
[facility] Detox Discharge Summary Admission Date: 07/09/18 Discharge Date: 07/11/18 - History Present History: Opioid Dependence, Sedative Dependence Pertinent Past History: 28 yo with many year h/o opiate addiction-completed only 3 day h/o methadone detox- states his father in [place] had a stroke and he needs to leave to visit his father. Pt given clonidine and vistaril for withdrawal Sx - Physical Exam Results Vital Signs: Vital Signs Temperature 97.1 F L 07/11/18 13:29 Pulse Rate 81 07/11/18 13:29 Respiratory Rate 16 07/11/18 13:29 Blood Pressure 101/71 07/11/18 13:29 O2 Sat by Pulse Oximetry (%) - Medication Discharge Medications: Ambulatory Orders Loperamide HCl [Imodium -] 4 mg PO Q6H PRN #20 capsule 07/11/18 cloNIDine HCL [Catapres -] 0.1 mg PO BID PRN #20 tablet 07/11/18 hydrOXYzine PAMOATE [Vistaril -] 50 mg PO Q4H PRN #10 capsule 07/11/18 - Diagnosis (1) Nicotine dependence Current Visit: Yes Status: Chronic Qualifiers: Nicotine product type: cigarettes Substance use status: in withdrawal Qualified Code(s): F17.213 - Nicotine dependence, cigarettes, with withdrawal (2) Opioid dependence with withdrawal Current Visit: Yes Status: Acute (3) Sedative, hypnotic or anxiolytic dependence with withdrawal, unspecified Current Visit: Yes Status: Acute
[2018-07-12] MEDS ORDERED: METHADONE HCL 5 MG TABLET (FOR DETOX USE ONLY) PO ONE (10:00)
[2018-07-13] MEDS ORDERED: METHADONE HCL 10 MG TABLET (FOR DETOX USE ONLY) PO ONE (10:00)
[2018-07-14] MEDS ORDERED: METHADONE HCL 5 MG TABLET (FOR DETOX USE ONLY) PO ONE (06:00)
== END 2018-07-11 17:40 | disposition left against medical advice (07) | DRG 894 ==
LOC: YASAS 13:31 → Y3N 18:05
PROC: HZ2ZZZZ Detoxification Services for Substance Abuse Treatment (ICD-10-PCS; principal; 2018-07-09)
DX: F11.23 Opioid dependence with withdrawal (principal); F13.230 Sedative, hypnotic or anxiolytic dependence with withdrawal, uncomplicated; F17.213 Nicotine dependence, cigarettes, with withdrawal; G47.00 Insomnia, unspecified
CPT/HCPCS: 36415; 80053; 81003; 85025; 86593; J0735

== ENCOUNTER 2021-01-13 15:07 | Inpatient (IN) | payer OTHER ==
[2021-01-13 16:11] VITALS: BMI 25.1
[2021-01-13] MEDS ORDERED: ACETAMINOPHEN 325 MG TABLET (FP) PO PRN ×2 (16:12)
[2021-01-13] MEDS ORDERED: MAGNESIUM CITRATE 300 ML BOTTLE PO PRN (16:12)
[2021-01-13] MEDS ORDERED: MENTHOL/PHENOL 1 EACH UD MM PRN (16:12)
[2021-01-13] MEDS ORDERED: ONDANSETRON *ODT* 4 MG TABLET SL PRN (16:12)
[2021-01-13] MEDS ORDERED: IBUPROFEN 400 MG TABLET (FP) PO PRN (16:12)
[2021-01-13] MEDS ORDERED: MAG HYDROX/AL HYDROX/SIMETH 30 ML UNIT-DOSE CUP PO PRN (16:12)
[2021-01-13] MEDS ORDERED: BISMUTH SUBSALICYLATE 524 MG/30 ML PO PRN (16:12)
[2021-01-13] MEDS ORDERED: MAGNESIUM HYDROX 2400MG/30ML ORAL SUSPENSION 30 ML CUP PO PRN (16:12)
[2021-01-13] MEDS ORDERED: hydrOXYzine PAMOATE 25 MG CAPSULE (FP) PO SCH (18:00)
[2021-01-13] MEDS ORDERED: cloNIDine HCL 0.1 MG TABLET PO PRN (20:49)
[2021-01-13] MEDS ORDERED: METHADONE HCL 10 MG TABLET (FOR DETOX USE ONLY) PO ONE (20:49)
[2021-01-13] MEDS: THIAMINE HCL 100 MG TABLET (FP) PO SCH (21:08)
[2021-01-13] MEDS: MELATONIN 5 MG TABLETS PO SCH (21:12)
[2021-01-13] MEDS: diazePAM 5 MG TABLET PO SCH (22:11)
[2021-01-14] MEDS: diazePAM 5 MG TABLET PO SCH ×5 (06:53→22:07)
[2021-01-14] MEDS ORDERED: METHADONE HCL 10 MG TABLET (FOR DETOX USE ONLY) ONE (09:09)
[2021-01-14] MEDS ORDERED: METHADONE HCL 5 MG TABLET (FOR DETOX USE ONLY) ONE (09:10)
[2021-01-14] MEDS ORDERED: METHADONE (DETOX) 20 MG, METHADONE (DETOX) 5 MG PO ONE (10:00)
[2021-01-14] MEDS: METHOCARBAMOL 500 MG TABLET PO PRN (10:22)
[2021-01-14] MEDS: PRENATAL VITAMINS W/ FOLIC ACID TABLET (FP) PO SCH (10:22)
[2021-01-14 10:27] LABS: HEMATOCRIT 33.8 % (35.4-49); MCH 28.3 pg (25.7-33.7); MCHC 35.5 g/dl (32.0-35.9); MEAN CELL VOLUME 79.8 fl (80-96); MEAN PLT VOLUME 9.5 fl (7.5-11.1); PLATELET COUNT 187 K/MM3 (134-434); RBC 4.24 M/mm3 (4.00-5.60); RDW 13.1 % (11.9-15.9); WHITE BLOOD COUNT 4.9 K/mm3 (4.0-10.0)
[2021-01-14 10:34] LABS: CALCIUM 8.4 mg/dL (8.5-10.1)
[2021-01-14 10:35] LABS: ALBUMIN 3.4 g/dl (3.4-5.0); BLOOD UREA NITROGEN 16.6 mg/dL (7-18)
[2021-01-14 10:36] LABS: CREATININE 0.7 mg/dL (0.55-1.3)
[2021-01-14 10:38] LABS: BILIRUBIN,TOTAL 0.4 mg/dL (0.2-1); TOT PROT 6.2 g/dl (6.4-8.2)
[2021-01-14] MEDS: NICOTINE POLACRILEX 2 MG GUM BUC PRN ×2 (16:33→22:31)
[2021-01-14] MEDS: diazePAM 5 MG TABLET PO PRN (19:21)
[2021-01-14] MEDS: THIAMINE HCL 100 MG TABLET (FP) PO SCH (22:07)
[2021-01-14] MEDS: MELATONIN 5 MG TABLETS PO SCH (22:07)
[2021-01-15] MEDS: diazePAM 5 MG TABLET PO PRN ×4 (03:03→16:44)
[2021-01-15] MEDS: diazePAM 5 MG TABLET PO SCH ×3 (06:00→22:18)
[2021-01-15] MEDS ORDERED: METHADONE HCL 10 MG TABLET (FOR DETOX USE ONLY) PO ONE (10:00)
[2021-01-15] MEDS: PRENATAL VITAMINS W/ FOLIC ACID TABLET (FP) PO SCH (10:12)
[2021-01-15] MEDS: METHOCARBAMOL 500 MG TABLET PO PRN (10:12)
[2021-01-15] MEDS: NICOTINE POLACRILEX 2 MG GUM BUC PRN (13:51)
[2021-01-15] MEDS: MELATONIN 5 MG TABLETS PO SCH (22:18)
[2021-01-15] MEDS: THIAMINE HCL 100 MG TABLET (FP) PO SCH (22:18)
[2021-01-16] MEDS: diazePAM 5 MG TABLET PO SCH ×2 (05:12→17:25)
[2021-01-16] MEDS ORDERED: METHADONE HCL 10 MG TABLET (FOR DETOX USE ONLY) ONE (08:55)
[2021-01-16] MEDS ORDERED: METHADONE HCL 5 MG TABLET (FOR DETOX USE ONLY) ONE (08:55)
[2021-01-16] MEDS ORDERED: METHADONE (DETOX) 10 MG, METHADONE (DETOX) 5 MG PO ONE (10:00)
[2021-01-16] MEDS: PRENATAL VITAMINS W/ FOLIC ACID TABLET (FP) PO SCH (12:20)
[2021-01-16] MEDS: NICOTINE POLACRILEX 2 MG GUM BUC PRN (17:28)
[2021-01-16] MEDS: diazePAM 5 MG TABLET PO PRN (19:58)
[2021-01-16] MEDS: MELATONIN 5 MG TABLETS PO SCH (22:11)
[2021-01-16] MEDS: THIAMINE HCL 100 MG TABLET (FP) PO SCH (22:11)
[2021-01-17] MEDS ORDERED: diazePAM 5 MG TABLET PO ONE (06:00)
[2021-01-17] MEDS ORDERED: METHADONE HCL 10 MG TABLET (FOR DETOX USE ONLY) PO ONE (10:00)
[2021-01-17] MEDS: PRENATAL VITAMINS W/ FOLIC ACID TABLET (FP) PO SCH (10:04)
[2021-01-17 20:23] VITALS: TEMP 96.9
[2021-01-17] MEDS: THIAMINE HCL 100 MG TABLET (FP) PO SCH (22:16)
[2021-01-17] MEDS: MELATONIN 5 MG TABLETS PO SCH (22:16)
[2021-01-17] MEDS: METHOCARBAMOL 500 MG TABLET PO PRN (22:17)
[2021-01-17] MEDS: NICOTINE POLACRILEX 2 MG GUM BUC PRN (22:18)
[2021-01-18] MEDS ORDERED: METHADONE HCL 5 MG TABLET (FOR DETOX USE ONLY) PO ONE (06:00)
[2021-01-18 09:12] VITALS: BP 129/77; PULSE 83
[2021-01-18 12:12] LABS: SARS-CoV-2 NAA Not Detected (Not Detected)
== END 2021-01-18 09:52 | disposition home or self-care (01) | DRG 897 ==
LOC: YASAS 15:07 → Y3N 17:46
PROVIDERS: ADMIT Allergy & Immunology; ATTEND Allergy & Immunology
PROC: HZ2ZZZZ Detoxification Services for Substance Abuse Treatment (ICD-10-PCS; principal; 2021-01-13)
DX: F11.23 Opioid dependence with withdrawal (principal); F13.230 Sedative, hypnotic or anxiolytic dependence with withdrawal, uncomplicated; F17.290 Nicotine dependence, other tobacco product, uncomplicated; F41.1 Generalized anxiety disorder; G47.00 Insomnia, unspecified
CPT/HCPCS: 36415; 80053; 85027; 86780; 93005; 93010; C9803; U0003; U0005